=== PATIENT | male | born 1965 | race Caucasian/White ===

== ENCOUNTER → 2018-06-17 | Day surgery (SDC) | payer BC ==
[2018-06-15 08:58] VITALS: BMI 19.5
[~2018-06-17] MED LIST: LACTATED RINGERS 1,000 ML IV SCH; LIDOCAINE 1% 20 ML VIAL (10MG/ML) FOR IV START INTRADERMA PRN; LIDOCAINE 1% INJ 10MG/ML (20 ML MDV) ONE; PROPOFOL 10 MG/ML 20 ML VIAL IV ONE
[2018-06-17 09:02] VITALS: TEMP 97.4
--- NOTE | 2018-06-17 09:27 | P.PCN ---
Date of Procedure: 06/17/18 Procedure(s) Performed: BRIEF HISTORY: Patient is a 52-year-old pleasant white male scheduled for an elective colonoscopy as a part of screening for colorectal neoplasia. PROCEDURE PERFORMED: Colonoscopy. PREOPERATIVE DIAGNOSIS: Screening for colon cancer. IV sedation per Anesthesia. PROCEDURE: After informed consent was obtained, the patient, was brought into the endoscopy unit. IV sedation was administered by Anesthesia under continuous monitoring. Digital rectal examination was normal. Initially the Olympus CF- 160 flexible video colonoscope was then inserted in the rectum, gradually advanced into the cecum without any difficulty. Careful examination was performed as the scope was gradually being withdrawn. Ileocecal valve and the appendiceal orifice were visualized and appeared normal. Prep was excellent. Mucosa of the cecum, ascending colon, transverse colon, descending colon, sigmoid colon, and rectum appeared normal. Retroflexion was performed in the rectum and no lesions were seen. The patient tolerated the procedure well. IMPRESSION: Normal-appearing colon from rectum to cecum with no evidence of colorectal neoplasia. RECOMMENDATIONS: Findings of this examination were discussed with the patient as well as his family. He was advised to have a repeat screening colonoscopy in 10 years.
[2018-06-17 10:24] VITALS: BP 132/73; PULSE 46; RESP 18
== END ==
LOC: ORWHC2ENDO 08:41
PROVIDERS: ATTEND Internal Medicine Gastroenterology
DX: Z12.11 Encounter for screening for malignant neoplasm of colon (principal)
CPT/HCPCS: J2001; J2704; G0121

== ENCOUNTER → 2022-06-11 | Outpatient (CLI) | payer BC ==
--- NOTE | 2022-06-11 18:41 | CT ---
EXAMINATION TYPE: CT abdomen pelvis wo con DATE OF EXAM: 06/11/2022 HISTORY: 56 M: Left flank pain x1 week. hx of kidney stones CT DLP: 275.50 mGycm. Automated Exposure Control for Dose Reduction was Utilized. TECHNIQUE: CT scan of the abdomen and pelvis is performed without oral or IV contrast. COMPARISON: None FINDINGS: Limitation: Noncontrast CT has limited sensitivity for focal lesions and vascular pathology. LUNG BASES: No acute findings. LIVER/GB: No significant abnormality is appreciated. PANCREAS: No significant abnormality is seen. SPLEEN: No significant abnormality is seen. ADRENALS: No significant abnormality is seen. KIDNEYS, URETERS, BLADDER: There is mild hydronephrosis and hydroureter down to the UPJ on the ipsila teral left, etiology unclear. There is a lower pole anterior parenchymal 3 mm nonobstructing left paco al calcification. No definite calcification along the expected course of the left ureter, which canno t be seen due to unopacified bowel loops and a paucity of abdominal pelvic adipose separation of norm al structures. Moreover, there are numerous bilateral phleboliths. Notwithstanding the above, there i s a candidate for distal left ureteral 2 mm calcification on axial image 111/165, located 2 cm proxim al to the expected position of the left UVJ. On the right, there is no hydronephrosis or hydroureter. There is a 2 cm lower pole cyst and a 3 mm n onobstructing lower pole calcification. Urinary bladder is unremarkable.4 BOWEL: No significant abnormality is seen. GENITAL ORGANS: No gross abnormality seen. LYMPH NODES: No greater than 1cm abdominal or pelvic lymph nodes are appreciated. OSSEOUS STRUCTURES: No significant abnormality is seen. IMPRESSION: Ipsilateral left mild hydronephrosis/hydroureter as described.
== END | disposition home or self-care (01) ==
LOC: RADCTMAIN 17:38
PROVIDERS: ATTEND Family Medicine
DX: R10.9 Unspecified abdominal pain (principal)
CPT/HCPCS: 74176

== ENCOUNTER → 2023-05-04 | Outpatient (CLI) | payer BC ==
--- NOTE | 2023-05-05 12:11 | CA ---
Transthoracic Echo Report Name: Erick Bueno Age: 57 Gender: M : 1965 Exam Date: 05/04/2023 16:58 Exam Location: [facility] Ht (in): 70 Wt (lb): 140 Ordering Physician: Tim Santiago MD Attending/Referring Phys: Luisana Woodard PAC Health Equipment Servicer Leia Glover RDCS Procedure CPT: Indications: R55 SYNCOPE AND COLLAPSE Cardiac Hx: Technical Quality: Good Contrast 1: Total Dose (mL): Contrast 2: Total Dose (mL): MEASUREMENTS (Male / Female) Normal Values 2D ECHO LV Diastolic Diameter PLAX 5.0 cm 4.2 - 5.9 / 3.9 - 5.3 cm LV Systolic Diameter PLAX 3.3 cm IVS Diastolic Thickness 0.9 cm 0.6 - 1.0 / 0.6 - 0.9 cm LVPW Diastolic Thickness 1.0 cm 0.6 - 1.0 / 0.6 - 0.9 cm LV Relative Wall Thickness 0.4 RV Internal Dim ED PLAX 3.6 cm LA Systolic Diameter LX 3.8 cm 3.0 - 4.0 / 2.7 - 3.8 cm LV Diastolic Volume MOD 4C 105.8 cm??? LV Systolic Volume MOD 4C 38.5 cm??? LV Ejection Fraction MOD 4C 63.6 % LV Cardiac Index MOD 4C 2557.2 cm???/min???m??? LV Diastolic Length 4C 9.1 cm LV Systolic Length 4C 7.0 cm LV Diastolic Volume MOD 2C 110.1 cm??? LV Systolic Volume MOD 2C 31.5 cm??? LV Ejection Fraction MOD 2C 71.4 % LV Cardiac Index MOD 2C 2986.2 cm???/min???m??? LV Diastolic Length 2C 8.5 cm LV Systolic Length 2C 6.4 cm LA Volume 45.9 cm??? 18 - 58 / 22 - 52 cm??? LA Volume Index 26.0 cm???/m??? 16 - 28 cm???/m??? M-MODE Aortic Root Diameter MM 3.6 cm MV E Point Septal Separation 0.2 cm AV Cusp Separation MM 2.4 cm DOPPLER AV Peak Velocity 139.6 cm/s AV Peak Gradient 7.8 mmHg MV Area PHT 2.2 cm??? Mitral E Point Velocity 56.7 cm/s Mitral A Point Velocity 65.9 cm/s Mitral E to A Ratio 0.9 MV Deceleration Time 339.7 ms MV E' Velocity 7.4 cm/s Mitral E to MV E' Ratio 7.6 TR Peak Velocity 239.7 cm/s TR Peak Gradient 23.0 mmHg Right Ventricular Systolic Press 27.6 mmHg FINDINGS Left Ventricle Left ventricular ejection fraction is estimated at 60-65 %. Left ventricular cavity size normal. Left ventricular wall thickness normal. Right Ventricle Normal right ventricular size. Right ventricular systolic pressure within normal limits. Right Atrium Normal right atrial size. Left Atrium Normal left atrial size. Mitral Valve Structurally normal mitral valve. Mitral valve thickened. No mitral stenosis, regurgitation or prolapse. Aortic Valve Trileaflet aortic valve. No aortic valve stenosis or regurgitation. Tricuspid Valve Structurally normal tricuspid valve. Trace to mild tricuspid regurgitation. Pulmonic Valve Structurally normal pulmonic valve. No pulmonic regurgitation. Pericardium No pericardial effusion. Aorta Normal size aortic root and proximal ascending aorta. CONCLUSIONS Normal LV function Previewed by: Dr. Tito Llanes MD (Electronically Signed) Final Date: 05 May 2023 12:09
== END | disposition home or self-care (01) ==
LOC: RADECHMAIN 16:52
PROVIDERS: ATTEND Family Medicine
DX: R55 Syncope and collapse (principal)
CPT/HCPCS: 93306

== ENCOUNTER → 2023-12-22 | Outpatient (CLI) | payer BC ==
--- NOTE | 2023-12-24 17:59 | FL ---
EXAMINATION TYPE: FL barium swallow DATE OF EXAM: 12/22/2023 COMPARISON: None HISTORY: Dysphasia getting stuck TECHNIQUE: A double air contrast esophagram study is performed. FINDINGS: DAP: 1064.38. Fluoroscopy time: 28 seconds. Images: 209. Esophagus is normal caliber has a normal contour to the gastroesophageal junction. Gastroesophageal j unction opens to normal caliber. No intraluminal or extramural defects are evident. No hiatal hernia is identified. However, there is some minimal visualization of a Schatzki's ring yury r the gastroesophageal junction. No presbyesophagus evident. IMPRESSION: 1. No acute esophageal abnormality.
== END | disposition home or self-care (01) ==
LOC: RADUSWWP 08:53
PROVIDERS: ATTEND Otolaryngology
DX: R13.19 Other dysphagia (principal)
CPT/HCPCS: 74220